=== PATIENT | male | born 1980 | race Two or more races ===

== ENCOUNTER 2016-12-05 14:33 | Day surgery (SDC) | payer OTHER ==
[2016-12-04 16:32] LABS: Urine RBC None Seen /hpf (0 - 3)
[2016-12-04 16:52] LABS: Urine Bilirubin Negative (Negative); Urine Blood Negative /uL (Negative); Urine Color Yellow (Yellow); Urine Glucose Normal (Normal); Urine Ketone Negative (Negative); Urine Nitrite Negative (Negative); Urine Squamous Epithelial Cell FEW /hpf (<5); Urine Urobilinogen Normal (Negative); Urine pH 6.5 (5.0-8.0)
[2016-12-04 16:56] LABS: INR 0.98 (0.9-1.15); Prothrombin Time 10.7 sec (9.37-12.3)
[2016-12-04 17:03] LABS: Albumin 3.8 g/dL (3.4-5.0); BUN/Creatinine Ratio 13.8; Bilirubin, Total 0.3 mg/dL (0.2-1.0); Calcium 8.6 mg/dL (8.5-10.1); Total Protein 6.7 g/dL (6.4-8.2)
[2016-12-04 17:15] LABS: Basophils # (auto) 0 uL; Basophils % (auto) 0.3 % (0.0-2.0); CONDITION Y; Eosinophils # (auto) 0.1 uL; Eosinophils % (auto) 1.2 % (0.0-7.0); Hemoglobin 14.9 g/dL (13.5-17.5); Lymphocytes # (auto) 1.9 uL; Lymphocytes % (auto) 33.7 % (10.0-50.0); Mean Corpuscular Hgb Conc. 33.8 g/dL (32.0-36.0); Mean Corpuscular Volume 91.9 fL (80.0-100.0); Mean Platelet Volume 10.8 fL (7.4-10.4); Monocytes # (auto) 0.5 uL; Monocytes % (auto) 9.1 % (0.0-12.0); Neutrophils # (auto) 3.2 uL; Neutrophils % (auto) 55.7 % (37.0-80.0); Platelet Count (auto) 189 10^3/uL (140-450); Red Cell Distribution Width 13.1 % (11.6-16.0); White Blood Cell 5.8 10^3/uL (4.4-10.8)
[~2016-12-05] VITALS: Ht 172.7 cm; Wt 73.9 kg
[2016-12-05] MEDS ORDERED: fentaNYL CITRATE 100 MCG/2 ML VL ONE (14:36)
[2016-12-05] MEDS ORDERED: PROPOFOL 10 MG/ML 20 ML IV ONE (14:36)
[2016-12-05] MEDS ORDERED: MIDAZOLAM HCL 1MG/1ML-2 ML VIAL ONE (14:36)
[2016-12-05] MEDS ORDERED: ceFAZolin 1GM/50ML D5W 50 ML IV ONE (14:39)
[2016-12-05] MEDS ORDERED: MIDAZOLAM HCL 1MG/1ML-2 ML VIAL IV PRN (14:45)
[2016-12-05] MEDS ORDERED: ONDANSETRON HCL 4 MG/2 ML VIAL IV ONE (14:45)
[2016-12-05] MEDS ORDERED: KETOROLAC TROMETH 30 MG/ML 1ML VIAL IV ONE (14:45)
[2016-12-05] MEDS ORDERED: hydrALAZINE HCL 20 MG/ML VL IV PRN (14:45)
[2016-12-05] MEDS ORDERED: HYDROmorphone HCL 2 MG/ML VL IV PRN (14:45)
[2016-12-05] MEDS ORDERED: MORPHINE SULF INJ 2 MG/ML SYRINGE 1ML IV PRN (14:45)
[2016-12-05] MEDS ORDERED: ePHEDrine SULFATE 50 MG/ML AMP IV PRN (14:45)
[2016-12-05] MEDS ORDERED: LABETALOL HCL 5 MG/ML 4ML SYRINGE IV PRN (14:45)
[2016-12-05] MEDS ORDERED: DEXAMETHASONE SOD PHOS 10MG/1ML VIAL INJ IV ONE (15:30)
[2016-12-05] MEDS ORDERED: LIDOCAINE 1% HCL (LOCAL ANESTH.) INJ 20ML MDV ONE (15:34)
[2016-12-05] MEDS ORDERED: LIDOCAINE W/ EPINEPHRINE 1 % INJ 30ML ONE (15:34)
[2016-12-05] MEDS ORDERED: KETOROLAC TROMETH 30 MG/ML 1ML VIAL ONE (15:43)
[2016-12-05 16:59] VITALS: BP 105/80
== END 2016-12-05 17:00 | disposition home or self-care (01) ==
LOC: SUR 14:33
PROVIDERS: ATTEND Urology
DX: N46.01 Organic azoospermia (principal); Z90.49 Acquired absence of other specified parts of digestive tract; F17.200 Nicotine dependence, unspecified, uncomplicated; F10.99 Alcohol use, unspecified with unspecified alcohol-induced disorder; Z88.8 Allergy status to other drugs, medicaments and biological substances
CPT/HCPCS: 36415; 54505; 80053; 81001; 85025; 85610; 85730; 87086; J0690; J1100; J1885; J2001; J2250; J2704; J3010